=== PATIENT | female | born 1980 | race Caucasian/White ===

== ENCOUNTER 2022-02-18 07:21 | Emergency (ER) | payer OTHER ==
[~2022-02-18] VITALS: Ht 154.9 cm; Wt 106.0 kg
[2022-02-18 07:35] VITALS: BP 107/74
[2022-02-18] MEDS ORDERED: MAGNESIUM/ALUMINUM HYDROXIDE/SIMETHICONE 30ML UDC PO STA (08:49)
[2022-02-18] MEDS ORDERED: ACETAMINOPHEN 325MG TABLET PO ONE (09:00)
[2022-02-18] MEDS ORDERED: ONDANSETRON 4MG ODT PO ONE (09:00)
[2022-02-18] MEDS ORDERED: FAMOTIDINE 20MG TABLET PO SCH (09:00)
[2022-02-18 10:14] LABS: BASOPHILS % 0.1 % (0.0-2.0); HEMATOCRIT. 45.8 % (36.0-48.0); HEMOGLOBIN. 14.5 g/dL (12.0-16.0); LYMPHOCYTES % 8.1 % (20.0-50.0); MEAN CORPUSCULAR HEMOGLOBIN 33.7 pg (28.0-32.0); MEAN CORPUSCULAR VOLUME 106.4 fL (81.0-99.0); MEAN PLATELET VOLUME 9.4 fl (7.4-10.4); MONOCYTES % 4.1 % (2.0-8.0); NEUTROPHILS % 87.7 % (40.0-76.0); PLATELET 311 x1000/uL (130-400); RED CELL DISTRIBUTION WIDTH 21.1 % (11.6-14.6)
[2022-02-18 10:21] LABS: CHLORIDE 93 mEq/L (98-107)
[2022-02-18 10:24] LABS: PROTHROMBIN TIME 10.8 sec (9.6-11.0)
[2022-02-18 10:32] LABS: HCG SCREEN NEGATIVE
[2022-02-18] MEDS ORDERED: VISCOUS LIDOCAINE 2% 15 ML UDC MM STA (11:11)
[2022-02-18] MEDS ORDERED: FAMO40TA70 MT (11:41)
[2022-02-18] MEDS ORDERED: TOPUD PO (11:41)
[2022-02-18] MEDS ORDERED: MAG-55 MT (11:41)
[2022-02-18] MEDS ORDERED: OMEP40CA20 MT (11:41)
== END 2022-02-18 11:56 | disposition home or self-care (01) ==
LOC: ER 08:54
DX: K21.9 Gastro-esophageal reflux disease without esophagitis (principal); K29.70 Gastritis, unspecified, without bleeding; F32.9 Major depressive disorder, single episode, unspecified; I10 Essential (primary) hypertension; Z87.891 Personal history of nicotine dependence; Z79.899 Other long term (current) drug therapy
CPT/HCPCS: 36415; 80053; 83690; 84703; 85025; 85610; 93005; 99284; Q0162